=== PATIENT | male | born 1995 | race Caucasian/White ===

== ENCOUNTER 2016-11-13 23:51 | Emergency (ER) | payer MEDICAID ==
[~2016-11-13 23:51] MED LIST: OMEP20TA PO; PALI234P IM; RISP2TAB37 PO; SERO400T PO; ZOLO100T PO
[2016-11-13 23:53] VITALS: BP 144/80; PULSE 112; RESP 16; TEMP 97.9; O2SAT 98
[2016-11-14] MEDS ORDERED: CLIN150 PO (01:43)
[2016-11-14] MEDS ORDERED: HYDR-3533 PO (01:43)
[2016-11-14] MEDS ORDERED: LIDOCAINE HCL 1% 50 ML VIAL INFIL ONE (01:45)
[2016-11-14] MEDS ORDERED: CLINDAMYCIN 150 MG CAP PO ONE (01:45)
[2016-11-14] MEDS ORDERED: ACETAMINOPHEN/HYDROcodone 325 MG/5 MG TAB PO ONE (01:45)
--- NOTE | 2016-11-14 01:55 | PD ---
HPI Chief Complaint: Skin Problem Time Seen by Provider: 01:36 Travel History International Travel<30 days: No Contact w/Intl Traveler<30days: No Traveled to known affect area: No History of Present Illness HPI 21-year-old male presents emergency Department with a abscess to his buttocks over the last 2-3 days. He states that he has had abscesses in the past which have been drained. He denies any fever chills. No nausea vomiting. Pain is [id number]. Patient states that he has prediabetes. PFSH Past Medical History Narrative Medical Schizophrenia, asthma, prediabetes Asthma: Yes Bipolar Disorder: Yes Depression: Yes Diabetes: No Diminished Hearing: No GERD: Yes Genitourinary: No Reproductive: No Respiratory: Yes (asthma) Immunizations Current: Yes Migraines: Yes Schizophrenia: Yes Tetanus Vaccination: < 5 Years Past Surgical History Surgical History: No Previous Surgery Other Surgery: No Social History Alcohol Use: No Tobacco Use: No Substance Use: No Allergies-Medications (Allergen,Severity, Reaction): Coded Allergies: iodine (Unverified Allergy, Severe, 11/13/16) potassium iodide (Unverified Allergy, Severe, 11/13/16) povidone-iodine (Unverified Allergy, Severe, 11/13/16) shellfish derived (Unverified Allergy, Severe, 11/13/16) sodium iodide (Unverified Allergy, Severe, 11/13/16) sodium iodide (Unverified Allergy, Severe, 11/13/16) Uncoded Allergies: Seasonal Allergies (Allergy, Severe, 02/11/14) Reported Meds & Prescriptions Reported Meds & Active Scripts Active Lortab (Hydrocodone-Acetaminophen) 5-325 Mg Tab 1 Tab PO Q6H PRN Cleocin (Clindamycin HCl) 150 Mg Cap 300 Mg PO Q6H Zoloft (Sertraline HCl) 100 Mg Tab 100 Mg PO DAILY Seroquel (Quetiapine Fumarate) 400 Mg Tab 400 Mg PO HS Risperdal (Risperidone) 2 Mg Tab 2 Mg PO 1 AM 2 HS Invega Sustenna Inj (Paliperidone Palmitate) 234 Mg/1.5 Ml Inj 234 Mg IM Q28D Omeprazole 20 Mg Tab 20 Mg PO DAILY Review of Systems Except as stated in HPI: all other systems reviewed are Neg Physical Exam Narrative GENERAL: This is a well-nourished, well-developed patient, in no apparent distress. SKIN: No rashes, ecchymoses or lesions. Warm and dry. Patient has a abscess developing to the perineum just above the anus and below the scrotum. The area measures approximately 2 x 2 centimeters. This is not a perirectal abscess. This is not Jewel's gangrene HEAD: Atraumatic. Normocephalic. EYES: PERRL, EOMI, no discharge or injection. No scleral icterus. EARS: Clear NOSE: Nasal turbinates appear normal. THROAT: Mucosa pink and moist. Airway patent. NECK: Trachea midline. supple, moves head freely. LUNGS: Clear to auscultation. CV: Regular in rhythm. ABDOMEN: Soft nontender. EXT: No clubbing cyanosis or edema. Data Data Last Documented VS Vital Signs Date Time Temp Pulse Resp B/P (MAP) Pulse Ox O2 Delivery O2 Flow Rate FiO2 11/13/16 23:53 97.9 112 16 144/80 (101) 98 Room Air Orders Orders Clindamycin (Cleocin) (11/14/16 01:45) Acetamin-Hydrocod 325-5 Mg ([place] 5-325 (11/14/16 01:45) Lidocaine 1% Inj (50 Ml) (Xylocaine 1% I (11/14/16 01:45) MDM Medical Decision Making Medical Screen Exam Complete: Yes Emergency Medical Condition: Yes Medical Record Reviewed: Yes Differential Diagnosis MDM: High Differential diagnoses: Abscess, folliculitis, cellulitis, lymphangitis, abrasion, contact dermatitis Narrative Course An incision and drainage has been performed. Patient's given clindamycin 600 mg by mouth, Lortab 500 g by mouth. Diagnosis Primary Impression: Abscess of perineum Patient Instructions: General Instructions, Narcotic given in the ED Additional Instructions: Rest. Elevation. keep clean and dry. remove the packing in two days. Daily wound care with soap, water and Neosporin. Three Advil every 6 hours. Clindamycin and Lortab. Follow-up with a primary care doctor in 2-3. Return to the ER for any problems. Med/Other Pt SpecificInfo: Prescription(s) given, Wound Care Scripts Hydrocodone-Acetaminophen (Lortab) 5-325 Mg Tab 1 TAB PO Q6H Y for PAIN, #12 TAB 0 Refills Prov: Di Londono MD 11/14/16 Clindamycin (Cleocin) 150 Mg Cap 300 MG PO Q6H for Infection, #80 CAP 0 Refills Prov: Di Londono MD 11/14/16 Disposition: 01 DISCHARGE HOME Condition: Stable Kenneth Arzate Nov 14, 2016 01:55
== END 2016-11-14 02:25 | disposition home or self-care (01) ==
LOC: NEPD 23:51
DX: L02.215 Cutaneous abscess of perineum (principal); F20.9 Schizophrenia, unspecified; J45.909 Unspecified asthma, uncomplicated; K21.9 Gastro-esophageal reflux disease without esophagitis
CPT/HCPCS: 99284

== ENCOUNTER 2017-04-16 22:51 | Emergency (ER) | payer MEDICAID ==
[~2017-04-16] VITALS: Ht 177.8 cm; Wt 112.0 kg
[~2017-04-16 22:51] MED LIST changes: +CLIN150 PO; +HYDR-3533 PO; -OMEP20TA PO; +OMEP20TA93 PO
[2017-04-16 22:54] VITALS: BP 142/86; PULSE 94; RESP 16; TEMP 98.1; O2SAT 98
[2017-04-16] MEDS ORDERED: ROBA500T PO (23:12)
[2017-04-16] MEDS ORDERED: DICL75TA PO (23:12)
[2017-04-16] MEDS ORDERED: ORPHENADRINE INJ 60 MG/2 ML AMP IM ONE (23:15)
[2017-04-16] MEDS ORDERED: KETOROLAC TROMETHAMINE 60 MG/2 ML (IM) VIAL IM ONE (23:15)
--- NOTE | 2017-04-16 23:16 | PD ---
HPI Chief Complaint: Back/ Neck Pain or Injury Time Seen by Provider: 23:03 Travel History International Travel<30 days: No Contact w/Intl Traveler<30days: No Traveled to known affect area: No History of Present Illness HPI 21-year-old white male presents to emergency Department with complaints of lower back pain. He states that he has some mild lower back pain earlier today but intensified after walking in [facility] today. Pain is worse when he bends and moves. Some early for remaining still. He denies any recent illness. No nausea vomiting. No dysuria or frequency. No hematuria. No numbness or tingling. PFSH Past Medical History Asthma: Yes Bipolar Disorder: Yes Depression: Yes Diabetes: No Diminished Hearing: No GERD: Yes Genitourinary: No Reproductive: No Respiratory: Yes (asthma) Immunizations Current: Yes Migraines: Yes Schizophrenia: Yes Past Surgical History Other Surgery: No Social History Alcohol Use: No Tobacco Use: No Substance Use: No Allergies-Medications (Allergen,Severity, Reaction): Coded Allergies: iodine (Unverified Allergy, Severe, 11/13/16) potassium iodide (Unverified Allergy, Severe, 11/13/16) povidone-iodine (Unverified Allergy, Severe, 11/13/16) shellfish derived (Unverified Allergy, Severe, 11/13/16) sodium iodide (Unverified Allergy, Severe, 11/13/16) sodium iodide (Unverified Allergy, Severe, 11/13/16) Uncoded Allergies: Seasonal Allergies (Allergy, Severe, 02/11/14) Reported Meds & Prescriptions Reported Meds & Active Scripts Active Robaxin (Methocarbamol) 500 Mg Tab 1,000 Mg PO TID [address] (Diclofenac Sodium) 75 Mg Tabdr 75 Mg PO BID Zoloft (Sertraline HCl) 100 Mg Tab 100 Mg PO DAILY Seroquel (Quetiapine Fumarate) 400 Mg Tab 400 Mg PO HS Risperdal (Risperidone) 2 Mg Tab 2 Mg PO 1 AM 2 HS Invega Sustenna Inj (Paliperidone Palmitate) 234 Mg/1.5 Ml Inj 234 Mg IM Q28D Omeprazole 20 Mg Tab 20 Mg PO DAILY Review of Systems Except as stated in HPI: all other systems reviewed are Neg Physical Exam Narrative GENERAL: Well-developed, well-nourished in no apparent distress. Nontoxic appearing. HEAD: Normocephalic, atraumatic. EYES: Pupils equal round and reactive. Extraocular motions intact. No scleral icterus. No injection or drainage. ENT: Nose clear. Throat without erythema, tonsillar hypertrophy or exudate. Uvula midline. Airway patent. NECK: Trachea midline. Supple, nontender, moves head freely. No central bony tenderness or spasm. CARDIOVASCULAR: Regular rate and rhythm without murmurs, gallops, or rubs. RESPIRATORY: Clear to auscultation. Breath sounds equal bilaterally. No wheezes , rales, or rhonchi. GASTROINTESTINAL: Abdomen soft, non-tender, nondistended. No hepato-splenomegaly , or palpable masses. No guarding. EXTREMITIES: No clubbing, cyanosis, or edema. No joint tenderness. BACK: No central bony tenderness to palpation of dorsal lumbar spine. Without deformity. No flank tenderness. Patient has bilateral lower para lumbar tenderness. No gross spasm. He has decreased range of motion due to pain. Negative straight leg raise. No saddle anesthesia. Patient ambulates with a normal gait. NEUROLOGICAL: Awake, alert and oriented x 3 .Cranial nerves grossly intact. Motor and sensory grossly within normal limits. Normal speech. Data Data Last Documented VS Vital Signs Date Time Temp Pulse Resp B/P (MAP) Pulse Ox O2 Delivery O2 Flow Rate FiO2 04/16/17 22:54 98.1 94 16 142/86 (104) 98 Orders Orders Ketorolac Inj (Toradol Inj) (04/16/17 23:15) Orphenadrine Inj (Norflex Inj) (04/16/17 23:15) [facility] Medical Decision Making Medical Screen Exam Complete: Yes Emergency Medical Condition: Yes Medical Record Reviewed: Yes Differential Diagnosis MDM: High Differential diagnoses: sprain, strain, HNP, nerve or vascular injury Narrative Course This is acute back pain Patient's given Toradol 60 mg and Norflex 60 mg IM. Diagnosis Primary Impression: acute back pain Patient Instructions: General Instructions Additional Instructions: Rest. Ice for the next 3 days followed by heat . Robaxin and Voltaren. Follow-up with a primary care doctor in one week. Return to the ER for emergencies. Med/Other Pt SpecificInfo: Prescription(s) given Scripts Methocarbamol (Robaxin) 500 Mg Tab 1000 MG PO TID for Muscle Spasm for 10 Days, TAB 0 Refills Prov: Enrique Tran MD 04/16/[address] (Diclofenac Sodium DR) 75 Mg Tabdr 75 MG PO BID, #20 TAB 0 Refills Prov: Enrique Tran MD 04/16/17 Disposition: 01 DISCHARGE HOME Condition: Stable Kenneth Arzate Apr 16, 2017 23:16
== END 2017-04-16 23:39 | disposition home or self-care (01) ==
LOC: NEPD 22:51
DX: M54.9 Dorsalgia, unspecified (principal); J45.909 Unspecified asthma, uncomplicated; F31.9 Bipolar disorder, unspecified; F20.9 Schizophrenia, unspecified; Z88.8 Allergy status to other drugs, medicaments and biological substances; Z91.013 Allergy to seafood
CPT/HCPCS: 96372; 99283; J1885; J2360

== ENCOUNTER 2017-05-09 20:08 | Emergency (ER) | payer MEDICAID ==
[~2017-05-09 20:08] MED LIST changes: -CLIN150 PO; +DICL75TA PO; -HYDR-3533 PO; +ROBA500T PO
[2017-05-09 21:08] VITALS: BP 157/93; PULSE 109; RESP 20; TEMP 98.5; O2SAT 99
[2017-05-09] MEDS ORDERED: MAGICADU2 SWISH-SPIT (21:21)
[2017-05-09] MEDS ORDERED: PROM25TA10 PO (21:21)
[2017-05-09] MEDS ORDERED: PENI500T PO (21:21)
--- NOTE | 2017-05-09 21:26 | PD ---
HPI Chief Complaint: Oral / Dental Pain or Problem Time Seen by Provider: 21:15 Travel History International Travel<30 days: No Contact w/Intl Traveler<30days: No Traveled to known affect area: No History of Present Illness HPI 21-year-old male presents for evaluation of dental pain. Symptoms started today. He reports a throbbing pain in the left mandibular second and third molars which is constant, radiates into the left side of his face and head. Pain is worse when chewing. Associated nausea and vomiting secondary to pain. Denies any cough, congestion, sore throat, fevers, chills. His mother had a leftover amoxicillin tablet which he used today and this did not acutely help. He has no other complaints at this time. PFSH Past Medical History Asthma: Yes Bipolar Disorder: Yes Depression: Yes Diabetes: No Diminished Hearing: No GERD: Yes Genitourinary: No Reproductive: No Respiratory: Yes (asthma) Immunizations Current: Yes Migraines: Yes Schizophrenia: Yes Past Surgical History Other Surgery: No Social History Alcohol Use: No Tobacco Use: No Substance Use: No Allergies-Medications (Allergen,Severity, Reaction): Coded Allergies: iodine (Unverified Allergy, Severe, 05/09/17) potassium iodide (Unverified Allergy, Severe, 05/09/17) povidone-iodine (Unverified Allergy, Severe, 05/09/17) shellfish derived (Unverified Allergy, Severe, 05/09/17) sodium iodide (Unverified Allergy, Severe, 05/09/17) sodium iodide (Unverified Allergy, Severe, 05/09/17) Uncoded Allergies: Seasonal Allergies (Allergy, Severe, 02/11/14) Reported Meds & Prescriptions Reported Meds & Active Scripts Active Penicillin V Potassium 500 Mg Tab 500 Mg PO Q8H 10 Days Phenergan (Promethazine HCl) 25 Mg Tablet 25 Mg PO Q6H PRN Magic Mouthwash Adult Liq (Multi-Ingredient Mouthwash/Gargle) 120 Ml Susp 10 Ml SWISH-SPIT ACHS Each 5mL contains: Nystatin 200,000units, Diphenhydramine 4.25mg, Viscous Lidocaine 10mg, Alfaro syrup 0.8 mL Robaxin (Methocarbamol) 500 Mg Tab 1,000 Mg PO TID [address] (Diclofenac Sodium) 75 Mg Tabdr 75 Mg PO BID Zoloft (Sertraline HCl) 100 Mg Tab 100 Mg PO DAILY Seroquel (Quetiapine Fumarate) 400 Mg Tab 400 Mg PO HS Risperdal (Risperidone) 2 Mg Tab 2 Mg PO 1 AM 2 HS Invega Sustenna Inj (Paliperidone Palmitate) 234 Mg/1.5 Ml Inj 234 Mg IM Q28D Omeprazole 20 Mg Tab 20 Mg PO DAILY Review of Systems General / Constitutional: No: Fever, Chills HENT: Positive: Dental Difficulties Gastrointestinal: Positive: Nausea, Vomiting Physical Exam Narrative GENERAL: Well-developed well-nourished male in no acute distress SKIN: Warm and dry. HEAD: Atraumatic. Normocephalic. EYES: Pupils equal and round. No scleral icterus. No injection or drainage. ENT: No nasal bleeding or discharge. Mucous membranes pink and moist. Left mandibular molars are tender to palpation and somewhat decayed. The surrounding gumline is mildly erythematous. There is no edema, no sublingual edema, no trismus. NECK: Trachea midline. No JVD. No lymphadenopathy. Neck supple full range of motion. CARDIOVASCULAR: Regular rate and rhythm. No murmur appreciated. RESPIRATORY: No accessory muscle use. Clear to auscultation. Breath sounds equal bilaterally. Data Data Last Documented VS Vital Signs Date Time Temp Pulse Resp B/P (MAP) Pulse Ox O2 Delivery O2 Flow Rate FiO2 05/09/17 21:08 98.5 109 20 157/93 (114) 99 Orders Orders Promethazine (Phenergan) (05/09/17 21:30) Acetaminophen (Tylenol) (05/09/17 21:30) Ed Discharge Order (05/09/17 21:23) [facility] Medical Decision Making Medical Screen Exam Complete: Yes Emergency Medical Condition: Yes Medical Record Reviewed: Yes Differential Diagnosis Dental caries, pulpitis, pericoronitis, periodontal abscess Narrative Course The patient will be treated with penicillin, Magic mouthwash, Phenergan. He is stable for discharge. Diagnosis Primary Impression: Dental caries Additional Instructions: Medication as prescribed. Tylenol or Motrin for pain. Follow-up with a dentist for definitive treatment. Return for any emergent medical conditions. Med/Other Pt SpecificInfo: Prescription(s) given Scripts Penicillin V Potassium (Penicillin V Potassium) 500 Mg Tab 500 MG PO Q8H for Infection for 10 Days, #30 TAB 0 Refills Prov: Enrique Tran MD 05/09/17 Promethazine (Phenergan) 25 Mg Tablet 25 MG PO Q6H Y for NAUSEA OR VOMITING, #20 TAB 0 Refills Prov: Enrique Tran MD 05/09/17 Xobmlota-Oxxttnzdqhwsntr-Khehjrbyl Liq (Magic Mouthwash Adult Liq) 120 Ml Susp 10 ML SWISH-SPIT ACHS for Mouth sores, #120 ML 1 Refill Each 5mL contains: Nystatin 200,000units, Diphenhydramine 4.25mg, Viscous Lidocaine 10mg, Alfaro syrup 0.8 mL Prov: Enrique Tran MD 05/09/17 Disposition: 01 DISCHARGE HOME Condition: Stable Marquis Powell May 09, 2017 21:26
[2017-05-09] MEDS ORDERED: ACETAMINOPHEN 325 MG TAB PO ONE (21:30)
[2017-05-09] MEDS ORDERED: PROMETHAZINE HCL 25 MG TAB PO ONE (21:30)
== END 2017-05-09 22:08 | disposition home or self-care (01) ==
LOC: NEPD 20:08
DX: K02.9 Dental caries, unspecified (principal); J45.909 Unspecified asthma, uncomplicated; F31.9 Bipolar disorder, unspecified; K21.9 Gastro-esophageal reflux disease without esophagitis; F20.9 Schizophrenia, unspecified
CPT/HCPCS: 99283; Q0169

== ENCOUNTER 2017-08-13 01:37 | Emergency (ER) | payer MEDICAID ==
[~2017-08-13] VITALS: Ht 170.2 cm; Wt 125.0 kg
[~2017-08-13 01:37] MED LIST changes: +MAGICADU2 SWISH-SPIT; +PENI500T PO; +PROM25TA10 PO
[2017-08-13 01:44] VITALS: BP 152/81; PULSE 100; RESP 18; TEMP 98.8; O2SAT 98
[2017-08-13] MEDS ORDERED: DICL75TA PO (02:33)
[2017-08-13] MEDS ORDERED: ROBA500T PO (02:33)
--- NOTE | 2017-08-13 02:38 | PD ---
HPI Chief Complaint: Back/ Neck Pain or Injury Time Seen by Provider: 02:14 Travel History International Travel<30 days: No Contact w/Intl Traveler<30days: No Traveled to known affect area: No History of Present Illness HPI 21-year-old male presents emergency department company by his we will complaints of lower back pain with some radiation into his right anterior thigh. Pain is moderate. Worse with movement. Some relief remaining still. History of back pain in the past. No trauma. Pain is been present for last 1- 2 days. He denies any acute bowel or bladder changes. The was concerned that this might be a kidney stone although he has had no urinary symptoms. No hematuria, nausea, vomiting. No recent illness. No fever chills. PFSH Past Medical History Asthma: Yes Bipolar Disorder: Yes Depression: Yes Diabetes: No Diminished Hearing: No GERD: Yes Genitourinary: No Reproductive: No Respiratory: Yes (asthma) Immunizations Current: Yes Migraines: Yes Schizophrenia: Yes Tetanus Vaccination: Unknown Past Surgical History Other Surgery: Yes (cyst removal on buttock) Social History Alcohol Use: No Tobacco Use: No Substance Use: No Allergies-Medications (Allergen,Severity, Reaction): Coded Allergies: iodine (Unverified Allergy, Severe, 08/13/17) potassium iodide (Unverified Allergy, Severe, 08/13/17) povidone-iodine (Unverified Allergy, Severe, 08/13/17) shellfish derived (Unverified Allergy, Severe, 08/13/17) sodium iodide (Unverified Allergy, Severe, 08/13/17) sodium iodide (Unverified Allergy, Severe, 08/13/17) Uncoded Allergies: Seasonal Allergies (Allergy, Severe, 02/11/14) Reported Meds & Prescriptions Reported Meds & Active Scripts Active Robaxin (Methocarbamol) 500 Mg Tab 1,000 Mg PO TID [address] (Diclofenac Sodium) 75 Mg Tabdr 75 Mg PO BID Penicillin V Potassium 500 Mg Tab 500 Mg PO Q8H 10 Days Phenergan (Promethazine HCl) 25 Mg Tablet 25 Mg PO Q6H PRN Magic Mouthwash Adult Liq (Multi-Ingredient Mouthwash/Gargle) 120 Ml Susp 10 Ml SWISH-SPIT ACHS Each 5mL contains: Nystatin 200,000units, Diphenhydramine 4.25mg, Viscous Lidocaine 10mg, Alfaro syrup 0.8 mL Zoloft (Sertraline HCl) 100 Mg Tab 100 Mg PO DAILY Seroquel (Quetiapine Fumarate) 400 Mg Tab 400 Mg PO HS Risperdal (Risperidone) 2 Mg Tab 2 Mg PO 1 AM 2 HS Invega Sustenna Inj (Paliperidone Palmitate) 234 Mg/1.5 Ml Inj 234 Mg IM Q28D Omeprazole 20 Mg Tab 20 Mg PO DAILY Review of Systems Except as stated in HPI: all other systems reviewed are Neg Physical Exam Narrative GENERAL: Well-developed, well-nourished in no acute distress. Nontoxic appearing. HEAD: Normocephalic, atraumatic. EYES: Pupils equal round and reactive. Extraocular motions intact. No scleral icterus. No injection or drainage. ENT: TMs clear without erythema. The external auditory canals clear. Nose: clear . Posterior pharynx is pink and moist. No tonsillar edema or exudate. Uvula midline. Airway patent. NECK: Trachea midline.Supple, nontender, moves head freely. No central bony tenderness or spasm. CARDIOVASCULAR: Regular rate and rhythm without murmurs, gallops, or rubs. RESPIRATORY: Clear to auscultation. Breath sounds equal bilaterally. No wheezes , rales, or rhonchi. GASTROINTESTINAL: Abdomen soft, non-tender, nondistended. No hepato-splenomegaly , or palpable masses. No guarding. EXTREMITIES: No clubbing, cyanosis, or edema. No joint tenderness, effusion, or edema noted. BACK: No central bony tenderness to palpation of the dorsal lumbar spine. Patient does have bilateral paralumbar tenderness more so on the right than left. Without deformity or crepitance. No flank tenderness. Patient is able to heel and toe stand. No acute sensory or motor deficit. Data Data Last Documented VS Vital Signs Date Time Temp Pulse Resp B/P (MAP) Pulse Ox O2 Delivery O2 Flow Rate FiO2 08/13/17 01:44 98.8 100 18 152/81 (104) 98 Orders Orders Ketorolac Inj (Toradol Inj) (08/13/17 02:45) Orphenadrine Inj (Norflex Inj) (08/13/17 02:45) Acetamin-Hydrocod 325-5 Mg ([place] 5-325 (08/13/17 02:45) Ed Discharge Order (08/13/17 02:34) [facility] Medical Decision Making Medical Screen Exam Complete: Yes Emergency Medical Condition: Yes Medical Record Reviewed: Yes Differential Diagnosis MDM: High Differential diagnoses: AAA,Fracture, sprain, strain, HNP, nerve or vascular injury, epidural abscess, pilonidal cyst, pyelonephritis, UTI, nephrolithiasis, ureterolithiasis Narrative Course Patient is given Toradol 60 mg and Norflex 60 mg IM. 1 [place] 5 mg p.o. Patient symptoms are inconsistent with a kidney stone. I do not believe any imaging or laboratory testing is indicated at this time. The patient is advised to follow-up with his primary care doctor on the next available appointment. This is acute back pain with sciatic Diagnosis Primary Impression: Acute back pain with sciatica Qualified Codes: M54.41 - Lumbago with sciatica, right side Patient Instructions: Narcotic given in the ED, General Instructions Additional Instructions: Rest. Ice for the next 3 days followed by heat . Flexeril and Voltaren. Follow-up with a primary care doctor as soon as possible. Return to the ER for emergencies. Med/Other Pt SpecificInfo: Prescription(s) given Scripts Methocarbamol (Robaxin) 500 Mg Tab 1000 MG PO TID for Muscle Spasm for 10 Days, TAB 0 Refills Prov: Esperanza Ramos DO 08/13/[address] (Diclofenac Sodium DR) 75 Mg Tabdr 75 MG PO BID, #20 TAB 0 Refills Prov: Esperanza Ramos DO 08/13/17 Disposition: 01 DISCHARGE HOME Condition: Stable Kenneth Arzate Aug 13, 2017 02:38
[2017-08-13] MEDS ORDERED: KETOROLAC TROMETHAMINE 60 MG/2 ML (IM) VIAL IM ONE (02:45)
[2017-08-13] MEDS ORDERED: ORPHENADRINE INJ 60 MG/2 ML AMP IM ONE (02:45)
[2017-08-13] MEDS ORDERED: ACETAMINOPHEN/HYDROcodone 325 MG/5 MG TAB PO ONE (02:45)
== END 2017-08-13 02:51 | disposition home or self-care (01) ==
LOC: NEPD 01:37
DX: M54.41 Lumbago with sciatica, right side (principal); K21.9 Gastro-esophageal reflux disease without esophagitis; F31.9 Bipolar disorder, unspecified; F20.9 Schizophrenia, unspecified
CPT/HCPCS: 96372; 99283; J1885; J2360

== ENCOUNTER 2017-08-15 00:07 | Emergency (ER) | payer MEDICAID ==
[2017-08-15 00:10] VITALS: BP 141/79; PULSE 84; RESP 21; TEMP 98.3; O2SAT 98
[2017-08-15] MEDS ORDERED: diphenhydrAMINE HCL 50 MG/ML VIAL IV PUSH ONE (01:00)
[2017-08-15] MEDS ORDERED: METOCLOPRAMIDE HCL 10 MG/2 ML VIAL IV PUSH ONE (01:00)
[2017-08-15] MEDS ORDERED: SODIUM CHLOR 0.9% 1000 ML INJ 1,000 ML IV ONE (01:00)
[2017-08-15 01:28] LABS: BILIRUBIN, URINE NEG (NEG); BLOOD, URINE NEG (NEG); GLUCOSE,URINE NEG (NEG); KETONE, URINE NEG (NEG); NITRITE,URINE NEG (NEG); PH, URINE 6.5 (5.0-8.5); URINE COLOR LIGHT-YELLOW (YELLW/STRAW); URINE LEUKOCYTE ESTERASE NEG (NEG)
--- NOTE | 2017-08-15 01:28 | PD ---
HPI Chief Complaint: Back/ Neck Pain or Injury Time Seen by Provider: 00:44 Travel History International Travel<30 days: No Contact w/Intl Traveler<30days: No Traveled to known affect area: No History of Present Illness HPI 21-year-old male returns to the ER company by his for evaluation of nausea, vomiting, diarrhea and back pain. This is a patient who had seen yesterday in the ER for acute back pain with right sciatica. He states that he had gone to see his doctor today and had a urinalysis performed which showed that he had a urinary tract infection. His doctor changed his diclofenac to Motrin and given a prescription for Cipro. He states that at the time of the visit he did not have any nausea, vomiting or diarrhea. It was not until he had gone home this evening around 9:00 when the symptoms came on. Patient states that he has not had resolution of his back pain yet. He denies any fever chills. No cough, congestion, abdominal pain or urinary symptoms. PFSH Past Medical History Asthma: Yes Bipolar Disorder: Yes Depression: Yes Diabetes: No Diminished Hearing: No GERD: Yes Genitourinary: No Reproductive: No Respiratory: Yes (asthma) Immunizations Current: Yes Migraines: Yes Schizophrenia: Yes Past Surgical History Other Surgery: Yes (cyst removal on buttock) Social History Alcohol Use: No Tobacco Use: No Substance Use: No Allergies-Medications (Allergen,Severity, Reaction): Coded Allergies: iodine (Unverified Allergy, Severe, 08/15/17) potassium iodide (Unverified Allergy, Severe, 08/15/17) povidone-iodine (Unverified Allergy, Severe, 08/15/17) shellfish derived (Unverified Allergy, Severe, 08/15/17) sodium iodide (Unverified Allergy, Severe, 08/15/17) sodium iodide (Unverified Allergy, Severe, 08/15/17) Uncoded Allergies: Seasonal Allergies (Allergy, Severe, 02/11/14) Reported Meds & Prescriptions Reported Meds & Active Scripts Active Robaxin (Methocarbamol) 500 Mg Tab 1,000 Mg PO TID [address] (Diclofenac Sodium) 75 Mg Tabdr 75 Mg PO BID Penicillin V Potassium 500 Mg Tab 500 Mg PO Q8H 10 Days Phenergan (Promethazine HCl) 25 Mg Tablet 25 Mg PO Q6H PRN Magic Mouthwash Adult Liq (Multi-Ingredient Mouthwash/Gargle) 120 Ml Susp 10 Ml SWISH-SPIT ACHS Each 5mL contains: Nystatin 200,000units, Diphenhydramine 4.25mg, Viscous Lidocaine 10mg, Alfaro syrup 0.8 mL Zoloft (Sertraline HCl) 100 Mg Tab 100 Mg PO DAILY Seroquel (Quetiapine Fumarate) 400 Mg Tab 400 Mg PO HS Risperdal (Risperidone) 2 Mg Tab 2 Mg PO 1 AM 2 HS Invega Sustenna Inj (Paliperidone Palmitate) 234 Mg/1.5 Ml Inj 234 Mg IM Q28D Omeprazole 20 Mg Tab 20 Mg PO DAILY Review of Systems Except as stated in HPI: all other systems reviewed are Neg Physical Exam Narrative GENERAL: Well-developed, well-nourished in no acute distress. Nontoxic appearing. HEAD: Normocephalic, atraumatic. EYES: Pupils equal round and reactive. Extraocular motions intact. No scleral icterus. No injection or drainage. ENT: TMs clear without erythema. The external auditory canals clear. Nose: clear . Posterior pharynx is pink and moist. No tonsillar edema or exudate. Uvula midline. Airway patent. NECK: Trachea midline.Supple, nontender, moves head freely. No central bony tenderness or spasm. CARDIOVASCULAR: Regular rate and rhythm without murmurs, gallops, or rubs. RESPIRATORY: Clear to auscultation. Breath sounds equal bilaterally. No wheezes , rales, or rhonchi. GASTROINTESTINAL: Abdomen soft, non-tender, nondistended. No hepato-splenomegaly , or palpable masses. No guarding. EXTREMITIES: No clubbing, cyanosis, or edema. No joint tenderness, effusion, or edema noted. BACK: No central bony tenderness to palpation of the dorsal lumbar spine. Right paralumbar tenderness. Without deformity or crepitance. No flank tenderness. Data Data Last Documented VS Vital Signs Date Time Temp Pulse Resp B/P (MAP) Pulse Ox O2 Delivery O2 Flow Rate FiO2 08/15/17 00:10 98.3 84 21 141/79 (99) 98 Orders Orders Complete Blood Count With Diff (08/15/17 00:50) Comprehensive Metabolic Panel (08/15/17 00:50) Lipase (08/15/17 00:50) Urinalysis - C+S If Indicated (08/15/17 00:50) Iv Access Insert/Monitor (08/15/17 00:50) Sodium Chlor 0.9% 1000 Ml Inj (Ns 1000 M (08/15/17 01:00) Diphenhydramine Inj (Benadryl Inj) (08/15/17 01:00) Metoclopramide Inj (Reglan Inj) (08/15/17 01:00) Ed Discharge Order (08/15/17 02:04) Labs Laboratory Tests Test 08/15/17 01:15 White Blood Count 7.3 TH/MM3 Red Blood Count 4.79 MIL/MM3 Hemoglobin 13.4 GM/DL Hematocrit 39.7 % Mean Corpuscular Volume 82.9 FL Mean Corpuscular Hemoglobin 28.0 PG Mean Corpuscular Hemoglobin Concent 33.8 % Red Cell Distribution Width 13.6 % Platelet Count 263 TH/MM3 Mean Platelet Volume 9.1 FL Neutrophils (%) (Auto) 57.2 % Lymphocytes (%) (Auto) 29.9 % Monocytes (%) (Auto) 8.1 % Eosinophils (%) (Auto) 3.7 % Basophils (%) (Auto) 1.1 % Neutrophils # (Auto) 4.2 TH/MM3 Lymphocytes # (Auto) 2.2 TH/MM3 Monocytes # (Auto) 0.6 TH/MM3 Eosinophils # (Auto) 0.3 TH/MM3 Basophils # (Auto) 0.1 TH/MM3 CBC Comment DIFF FINAL Differential Comment Urine Color LIGHT-YELLOW Urine Turbidity CLEAR Urine pH 6.5 Urine Specific [place] 1.009 Urine Protein NEG mg/dL Urine Glucose (UA) NEG mg/dL Urine Ketones NEG mg/dL Urine Occult Blood NEG Urine Nitrite NEG Urine Bilirubin NEG Urine Urobilinogen LESS THAN 2.0 MG/DL Urine Leukocyte Esterase NEG Urine WBC 1 /hpf Microscopic Urinalysis Comment CULT NOT INDICATED Blood Urea Nitrogen 12 MG/DL Creatinine 0.80 MG/DL Random Glucose 98 MG/DL Total Protein 7.6 GM/DL Albumin 3.7 GM/DL Calcium Level 8.6 MG/DL Alkaline Phosphatase 134 U/L Aspartate Amino Transf (AST/SGOT) 18 U/L Alanine Aminotransferase (ALT/SGPT) 40 U/L Total Bilirubin 0.1 MG/DL Sodium Level 140 MEQ/L Potassium Level 3.9 MEQ/L Chloride Level 107 MEQ/L Carbon Dioxide Level 22.4 MEQ/L Anion Gap 11 MEQ/L Estimat Glomerular Filtration Rate 120 ML/MIN Lipase 92 U/L [facility] Medical Decision Making Medical Screen Exam Complete: Yes Emergency Medical Condition: Yes Medical Record Reviewed: Yes Interpretation(s) Laboratory Tests Test 08/15/17 01:15 White Blood Count 7.3 TH/MM3 Red Blood Count 4.79 MIL/MM3 Hemoglobin 13.4 GM/DL Hematocrit 39.7 % Mean Corpuscular Volume 82.9 FL Mean Corpuscular Hemoglobin 28.0 PG Mean Corpuscular Hemoglobin Concent 33.8 % Red Cell Distribution Width 13.6 % Platelet Count 263 TH/MM3 Mean Platelet Volume 9.1 FL Neutrophils (%) (Auto) 57.2 % Lymphocytes (%) (Auto) 29.9 % Monocytes (%) (Auto) 8.1 % Eosinophils (%) (Auto) 3.7 % Basophils (%) (Auto) 1.1 % Neutrophils # (Auto) 4.2 TH/MM3 Lymphocytes # (Auto) 2.2 TH/MM3 Monocytes # (Auto) 0.6 TH/MM3 Eosinophils # (Auto) 0.3 TH/MM3 Basophils # (Auto) 0.1 TH/MM3 CBC Comment DIFF FINAL Differential Comment Urine Color LIGHT-YELLOW Urine Turbidity CLEAR Urine pH 6.5 Urine Specific [place] 1.009 Urine Protein NEG mg/dL Urine Glucose (UA) NEG mg/dL Urine Ketones NEG mg/dL Urine Occult Blood NEG Urine Nitrite NEG Urine Bilirubin NEG Urine Urobilinogen LESS THAN 2.0 MG/DL Urine Leukocyte Esterase NEG Urine WBC 1 /hpf Microscopic Urinalysis Comment CULT NOT INDICATED Blood Urea Nitrogen 12 MG/DL Creatinine 0.80 MG/DL Random Glucose 98 MG/DL Total Protein 7.6 GM/DL Albumin 3.7 GM/DL Calcium Level 8.6 MG/DL Alkaline Phosphatase 134 U/L Aspartate Amino Transf (AST/SGOT) 18 U/L Alanine Aminotransferase (ALT/SGPT) 40 U/L Total Bilirubin 0.1 MG/DL Sodium Level 140 MEQ/L Potassium Level 3.9 MEQ/L Chloride Level 107 MEQ/L Carbon Dioxide Level 22.4 MEQ/L Anion Gap 11 MEQ/L Estimat Glomerular Filtration Rate 120 ML/MIN Lipase 92 U/L CBC & BMP Diagram 6/14/18 01:15 Total Protein 7.6, Albumin 3.7, Calcium Level 8.6, Alkaline Phosphatase 134 H, Aspartate Amino Transf (AST/SGOT) 18, Alanine Aminotransferase (ALT/SGPT) 40, Total Bilirubin 0.1 L Differential Diagnosis MDM: High Differential diagnoses: sprain, strain, HNP, nerve or vascular injury, pyelonephritis, UTI, nephrolithiasis, ureterolithiasis Narrative Course IV access is obtained. Patient is given liter bolus of normal saline, Benadryl 50 mg IV, Reglan 10 mg IV. We will obtain a CBC, chemistry, lipase, and UA. Patient's laboratory tests including urinalysis are unremarkable. Patient states that his nausea vomiting has resolved. I explained to the patient that I do not believe that the patient truly has a UTI. I have given him a copy of his laboratory tests to bring to his doctor. The patient is advised that I do not believe his symptoms of nausea, vomiting and diarrhea are associated to his back pain. He is already had been given medication and treatment for his back pain. He is to continue his medications. I suspect his nausea vomiting and diarrhea are more of a viral etiology. Patient is medically stable for discharge. This is nausea, vomiting, diarrhea, back pain with sciatica Diagnosis Primary Impression: Nausea Additional Impressions: Vomiting Diarrhea Back pain with sciatica Patient Instructions: General Instructions Additional Instructions: Rest. Increase fluids. Zofran for nausea and vomiting. Imodium AD [id number] for diarrhea. Continue her home medications for your back pain. Follow-up with your doctor in the next 1-2 days for recheck. Return to the ER for emergencies. Med/Other Pt SpecificInfo: Prescription(s) given Disposition: DISCHARGE HOME Condition: Stable Kenneth Arzate Aug 15, 2017 01:28
[2017-08-15 01:41] LABS: AUTOMATED NEUTROPHIL # 4.2 TH/MM3 (1.8-7.7); BASOPHIL # 0.1 TH/MM3 (0-0.2); BASOPHIL % 1.1 % (0.0-2.0); EOSINOPHIL # 0.3 TH/MM3 (0-0.4); EOSINOPHIL % 3.7 % (0.0-4.0); HEMATOCRIT 39.7 % (39.0-51.0); HEMOGLOBIN 13.4 GM/DL (13.0-17.0); LYMPH % 29.9 % (9.0-44.0); LYMPHOCYTE # 2.2 TH/MM3 (1.0-4.8); MEAN CELL VOLUME 82.9 FL (80.0-100.0); MEAN CORPUSCULAR HGB CONC 33.8 % (32.0-36.0); MEAN PLATELET VOLUME 9.1 FL (7.0-11.0); MONO % 8.1 % (0.0-8.0); MONOCYTE # 0.6 TH/MM3 (0-0.9); NEUT % 57.2 % (16.0-70.0); PLATELET COUNT 263 TH/MM3 (150-450); RED BLOOD COUNT 4.79 MIL/MM3 (4.50-5.90); RED CELL DISTRIBUTION WIDTH 13.6 % (11.6-17.2); WHITE BLOOD COUNT 7.3 TH/MM3 (4.0-11.0)
[2017-08-15 01:55] LABS: ALBUMIN 3.7 GM/DL (3.4-5.0); ALT (GPT) 40 U/L (12-78); AST (GOT) 18 U/L (15-37); BICARBONATE 22.4 MEQ/L (21.0-32.0); BLOOD UREA NITROGEN 12 MG/DL (7-18); CALCIUM 8.6 MG/DL (8.5-10.1); CHLORIDE 107 MEQ/L (98-107); GLOMERULAR FILTRATION RATE 120 ML/MIN (>89); GLUCOSE,RANDOM 98 MG/DL (74-106); SODIUM (NA) 140 MEQ/L (136-145)
[2017-08-15 01:58] LABS: ALKALINE PHOSPHATASE 134 U/L (45-117); TOTAL BILIRUBIN ADULT 0.1 MG/DL (0.2-1.0); TOTAL PROTEIN 7.6 GM/DL (6.4-8.2)
[2017-08-15] MEDS ORDERED: ZOFR4TAB3 SL (02:08)
[2017-08-15 02:27] VITALS: BP 134/84
== END 2017-08-15 02:27 | disposition home or self-care (01) ==
LOC: NEPD 00:07
DX: R11.2 Nausea with vomiting, unspecified (principal); R19.7 Diarrhea, unspecified; M54.41 Lumbago with sciatica, right side; J45.909 Unspecified asthma, uncomplicated; F31.9 Bipolar disorder, unspecified; F20.9 Schizophrenia, unspecified; K21.9 Gastro-esophageal reflux disease without esophagitis
CPT/HCPCS: 80053; 81001; 83690; 85025; 96361; 96374; 96375; 99284; J1200; J2765; J7030